=== PATIENT | female | born 1960 | race Caucasian/White ===

== ENCOUNTER → 2016-08-05 | Outpatient (REF) ==
[~2016-08-05] MED LIST: ASPIRIN 81M81 MG/TA2 PO; ATIVAN2 MG PO; CLEOCIN HCL300 MG PO; FLOVENT 110MCG7.9 GM IH; KEPPRA1000 MG PO; LISINOPRIL10 MG PO; MULTI VITAMINS1 TAB PO; NO HOME MEDICATIONS; PRILOSEC 20MG20 MG PO; PROVENTIL0.09 MG/A1 IH; SINGULAIR10 MG PO; SYNTHROID 0.10.15 MG PO; TRILEPTAL 300M300 MG PO; TRILEPTAL300 MG PO; VITAMIN D31000 IU PO; ZANTAC 300300 MG PO
[2016-08-05 19:06] LABS: THYROID STIMULATING HORMONE 0.068 uIU/mL (0.465-4.680)
== END ==
LOC: ZLAB.WCH 18:17
PROVIDERS: Family Medicine
DX: Z01.89 Encounter for other specified special examinations (principal)

== ENCOUNTER → 2017-10-12 | Outpatient (REF) ==
[2017-10-12 18:28] LABS: THYROID STIMULATING HORMONE 1.48 uIU/mL (0.465-4.680)
== END ==
LOC: ZLAB.WCH 17:47
PROVIDERS: Family Medicine
DX: Z01.89 Encounter for other specified special examinations (principal)

== ENCOUNTER 2018-09-05 18:58 | Inpatient (IN) | payer MEDICARE ==
[~2018-09-05] VITALS: Ht 157.5 cm; Wt 118.2 kg
[2018-09-05 19:27] LABS: BASO % 0.8 % (0.0-2.0); EOS # 0.1 (0.0-0.7); EOS % 2.4 % (0-4.0); GRAN # 2.8 (1.4-6.5); GRAN % 54.8 % (42.2-75.2); HEMATOCRIT 35.6 % (37.0-47.0); HEMOGLOBIN 11.6 g/dl (12.5-16.0); LYMPH # 1.7 (1.2-3.4); MEAN CELL VOLUME 98 fl (80.0-100.0); MEAN CORPUSCULAR HEMOGLOBIN 32 pg (27.0-31.0); MEAN CORPUSCULAR HGB CONC 33 g/dl (33.0-37.0); MEAN PLATELET VOLUME 9.5 fl (7.4-10.4); MONO # 0.5 (0.1-0.6); MONO % 8.8 % (1.7-9.3); PLATELET COUNT 232 K/mm3 (130-400); RED BLOOD COUNT 3.62 M/mm3 (4.10-5.30); REDCELL DISTRIBUTION WIDTH-CV 14.9 % (11.5-14.5)
[2018-09-05 19:37] LABS: ALANINE AMINOTRANSFERASE < 6 U/L (9-52); ALBUMIN 3.4 gm/dL (3.5-5.0); ALKALINE PHOSPHATASE 98 U/L (50-136); ANION GAP 7 mmol/L (7-16); AST,SGOT 26 U/L (15-37); BILIRUBIN,TOTAL 0.3 mg/dL (0.0-1.0); BLOOD UREA NITROGEN 14 mg/dL (7-17); CALCIUM 8.4 mg/dL (8.4-10.2); CARBON DIOXIDE 26 mmol/L (22-30); CHLORIDE 110 mmol/L (98-107); CREATININE, serum 0.69 (0.52-1.25); GLUCOSE 111 mg/dL (74-106); POTASSIUM 3.8 mmol/L (3.4-5.0); SODIUM 143 mmol/L (137-145); TOTAL PROTEIN 6.4 gm/dL (6.4-8.2)
--- NOTE | 2018-09-05 22:45 | NUR ---
Patient arrived to medical floor. Assessment complete. Lungs clear. Heart sounds normal. Bowels active x4. Pulses present. Right lower extremity braced at this time. Reports 9/10 pain. Recently provided with morphine in ED. Patient instructed to bring medications for update home medication list. Orientated to medical floor. Denies other needs at this time. All questions answered. Will monitor.
[2018-09-05] MEDS ORDERED: KEPPRA 500MG500 MG PO (23:37)
[2018-09-05] MEDS ORDERED: PRINIVIL10 MG PO (23:38)
[2018-09-05] MEDS ORDERED: TOPROL XL 25MG25 MG PO (23:39)
[2018-09-05] MEDS ORDERED: EFFEXOR-XR150 MG PO (23:40)
[2018-09-05] MEDS ORDERED: PROTONIX 40MG T40 MG PO (23:40)
[2018-09-05] MEDS ORDERED: LEVOXYL0.125 MG PO (23:41)
[2018-09-05] MEDS ORDERED: VITAMIN D 50,1.25 MG PO (23:42)
[2018-09-05] MEDS ORDERED: LIPITOR 10MG10 MG PO (23:43)
[2018-09-06] VITALS (12 sets, daily range): BP systolic 106–145; BP diastolic 58–87; PULSE 55–610; TEMP 97.5–98.4
--- NOTE | 2018-09-06 00:30 | NUR ---
Patient provided with morphine for 11/10 pain in right lower leg. Denies other needs. Call light in reach.
--- NOTE | 2018-09-06 01:55 | NUR ---
Patient reports did not take night dosing of keppra and trileptal. Also morphine no longer controling pain. Would like something else. Per Maia okay to give non-schedule dose of keppra and trileptal. Verbal order for [place] 5/325mg, 2 tablets Q6H PRN pain. Patient provided with keppra and norco. Will provide trileptal when received from house supervisior. Patient aware. Denies other needs. Call light in reach.
--- NOTE | 2018-09-06 04:30 | NUR ---
Reports acid reflex and 11/10 pain in right leg. Provided with morphine. Received order from Maia for GI cocktail and IV protonix.
--- NOTE | 2018-09-06 07:26 | NUR ---
REPORT FROM REGINA.
--- NOTE | 2018-09-06 07:49 | NUR ---
Patient required pain medication for right lower leg pain. Otherwise uneventful. Report given to JO Tinsley
--- NOTE | 2018-09-06 09:27 | NUR ---
AM MEDS GIVEN ORDERED. VSS, SONU ROJAS SAID PT TO HAVE SURGERY AROUND NOON.
--- NOTE | 2018-09-06 10:50 | NUR ---
SW met with the patient to discuss discharge plan. The patient lives in [place] with her , Calderon. She reports independence with ADLs and does not have any DME. The patient's PCP is Dr. Diogo Nieves and she receives her medications at the [facility] in [place]. She reports no difficulties obtaining her meds. The patient does not have advanced directives and she was not interested in completing them at this time. The patient plans to return home with her upon discharge. No identified needs at this time, but SW to continue to follow.
--- NOTE | 2018-09-06 11:43 | NUR ---
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 No needs right now.
--- NOTE | 2018-09-06 13:53 | NUR ---
pt to surgery @ 1245 per bed with
--- NOTE | 2018-09-06 15:40 | NUR ---
returned to room per bed from PACU, awake and alert but sleepy, IV infusing per gravity, O2 on at O2 sat 96%, right leg with splint dressing and is up on pillows, full assessment completed, see interventions for further info, given sips of water and tolerates well, family at bedside
--- NOTE | 2018-09-06 16:00 | NUR ---
c/o pain 09/13 and medicated with hydrocodone 7.5mg 2 tabs
--- NOTE | 2018-09-06 16:30 | NUR ---
resting with lights off, asking about eating, instructed on ordering something to eat, verbalizes understanding
--- NOTE | 2018-09-06 17:00 | NUR ---
appears to be dozing, supper at bedside
--- NOTE | 2018-09-06 17:30 | NUR ---
dozing between checks, requesting something for gastric reflux that had she had something earlier, reviewed emar it it was a preop order, will notify
--- NOTE | 2018-09-06 17:30 | NUR ---
had supper and tolerated well, talking on phone, continues with sensation at mid to top of thighs
--- NOTE | 2018-09-06 18:30 | NUR ---
O2 sat mid to high 80s on room air, O2 back on at 2L/Nc
--- NOTE | 2018-09-06 18:58 | NUR ---
bedside shift report given to JO Carrizales
--- NOTE | 2018-09-06 19:16 | NUR ---
Report received from JO Dee.
[2018-09-07 00:15] VITALS: BP 102/49; PULSE 50; TEMP 98.3
--- NOTE | 2018-09-07 03:25 | NUR ---
Patient has rested well tonight. Requested pain medication x1 so far this shift. Effective pain control. Patient stood up and pivoted to the commode to urinate tonight. Continues to be NWB on right foot. at bedside. Will continue to monitor.
[2018-09-07 03:54] VITALS: BP 108/58; PULSE 59; TEMP 98.7
[2018-09-07 08:00] VITALS: BP 134/69; PULSE 61; TEMP 98.8
[2018-09-07 11:44] VITALS: BP 114/53; PULSE 60; TEMP 98.5
[2018-09-07] MEDS ORDERED: TYLENOL 325MG325 MG PO (12:25)
[2018-09-07] MEDS ORDERED: NORCO 325 MG-7.1 TAB PO (12:27)
[2018-09-07] MEDS ORDERED: DURICEF 500MG500 MG PO (12:27)
--- NOTE | 2018-09-07 15:45 | NUR ---
Pain in right ankle relieved with prn pain meds. CMS intact. Worked with physical therapy. Transferred well with walker, NWB right leg. Dismissed to home per w/c with family.
== END 2018-09-07 15:45 | disposition home or self-care (01) | DRG 502 ==
LOC: COL.ER 18:58 → MEDICAL 20:27 → SURG 09-06 15:40
PROVIDERS: Family Medicine; ADMIT Internal Medicine
PROC: 0QSGXZZ Reposition Right Tibia, External Approach (ICD-10-PCS; principal; 2018-09-05)
PROC: 0MQQ0ZZ Repair Right Ankle Bursa and Ligament, Open Approach (ICD-10-PCS; principal; 2018-09-05)
DX: S82.86 Maisonneuve's fracture (principal); W17.89XA Other fall from one level to another, initial encounter; Z91.81 History of falling; Y93.E9 Activity, other interior property and clothing maintenance; Y92.009 Unspecified place in unspecified non-institutional (private) residence as the place of occurrence of the external cause; Y99.9 Unspecified external cause status; E66.9 Obesity, unspecified; I10 Essential (primary) hypertension; E11.9 Type 2 diabetes mellitus without complications; Z95.0 Presence of cardiac pacemaker; G40.909 Epilepsy, unspecified, not intractable, without status epilepticus; F41.9 Anxiety disorder, unspecified; E03.9 Hypothyroidism, unspecified; K21.9 Gastro-esophageal reflux disease without esophagitis; R00.1 Bradycardia, unspecified; Z79.82 Long term (current) use of aspirin; Z79.890 Hormone replacement therapy; F17.210 Nicotine dependence, cigarettes, uncomplicated; Z88.0 Allergy status to penicillin
CPT/HCPCS: 99222-AI; 99239; C1713; C9113; J0690; J1100; J1170; J2270; J2405; J2704; J2710; J3010; J7120